=== PATIENT | female | born 1995 | race Caucasian/White ===

== ENCOUNTER 2020-11-07 10:08 | Inpatient (IN) | payer OTHER, MEDICAID, SELFPAY ==
[2020-11-07] VITALS (15 sets, daily range): BP systolic 94–145; BP diastolic 63–76; PULSE 59–77; RESP 16–18; TEMP 36.1–36.5; O2SAT 97–100; BMI 47.2
[2020-11-07] MEDS: Lactated Ringers 1,000 ML 999 ML IV (10:50)
[2020-11-07 11:03] LABS: Absolute Lymphocyte Count 1.96 X10^3/uL (0.83-4.51); Absolute Neutrophil Count 7.4 X10^3/uL (2.0-7.7); Basophil# 0.03 X10^3/uL; Basophil% 0.3 % (0-1); Eosinophil# 0.06 X10^3/uL; Eosinophils% 0.6 % (0-5); Hematocrit 35.1 % (37-47); Lymphocyte # 1.96 X10^3/ul (0.83-4.51); Lymphocyte % 19.1 % (19-41); Mean Corp Hgb Conc 31.3 g/dL (32-36); Mean Corpuscular Hgb 27.3 pg (27.0-32.0); Mean Corpuscular Volume 87.1 fL (81-99); Mean Platelet Vol. 12.6 fl (6.2-12.0); Monocyte# 0.71 X10^3/uL; Monocyte% 6.9 % (0-10); NRBC Flagged by Analyzer 0 % (0-5); Neutrophil # 7.43 X10^3/uL (2.7-7.7); Neutrophil % 72.2 % (47-70); POSITIVE MORPHOLOGY YES; Platelet Count 210 K/mm3 (150-450); RBC Distribution Width CV 14.6 % (11.6-14.6); RBC Distribution Width SD 46.5 fl (35.1-43.9); Red Blood Count 4.03 M/mm3 (4.2-5.4); White Blood Count 10.3 K/mm3 (4.4-11.0)
[2020-11-07 11:06] LABS: Differential Indicated SCAN CRITERIA MET
[2020-11-07] MEDS: Acetaminophen 500 MG Tablet 1000 MG PO ×2 (11:38→17:56)
[2020-11-07] MEDS: Lactated Ringers 1,000 ML 150 ML IV (11:41)
[2020-11-07] MEDS: Sodium Citrate/Citric Acid 30 ML UDC PO (12:02)
[2020-11-07] MEDS: Cefazolin 2 GM in 0.9% Normal Saline 100 ML IV (12:07)
--- NOTE | 2020-11-07 12:09 | PCM.HP.OB ---
HPI - General General Date of Admission: 11/07/20 HPI Narrative LEI THRASHER, is a 24 F who presents for repeat section for gHTN and A1GDM. No pre e symptoms. Fasting BG's are now starting to elevate over the last few days. BP at home has been mild range. BP in office 2 days ago was mild range, as well as today. DBP 100's in office. Maternal Data Information YEMI Calculator Estimated Delivery Date Method Current WG Current Estimate 11/18/20 LMP (Certain) 38w 3d PFSH PFSH Home Medications bupropion HCl [Wellbutrin XL] 150 mg PO 11/07/20 [History Last Taken 11/06/20 21:00] fluoxetine [Prozac] 40 mg PO DAILY 11/07/20 [History Last Taken 11/06/20 21:00] Allergy/AdvReac Type Severity Reaction Status Date / Time pecan nut Allergy Swelling Verified 11/07/20 10:57 Social History Smoking Status: Former smoker History Elective abortions Hx Para 1 Spontaneous abortions Hx # Term Pregnancies Ectopic pregnancies Hx # Pregnancies Multiple births # of living children Vital Signs Vital Signs Vital Signs: Weight Weight: 274 lb 14.663 oz Body Mass Index (BMI) 47.2 Physical Exam Const alert and no apparent distress General Appearance: comfortable Resp normal respiratory effort Cardio regular rate GI soft to palpation and non-tender Extremity no calf tenderness Extremity Narrative: 1+ pitting edema bilaterally Labs Labs Labs: Blood Type Pending Antibody Screen Pending Hct 35.1 % (37-47) L Hgb 11.0 g/dL (12.0-15.0) L Assessment & Plan (1) 38 weeks gestation of : PLAN: Proceed with repeat section - r/b/a were discussed and patient desires to proceed. Consent signed in office. BP's now mild range in the office on two separate occasions, and at home. No evidence of pre e. A1GDM - fasting BG's now elevated. (2) History of section: (3) Gestational hypertension: (4) Gestational diabetes: (5) History of gestational hypertension: (6) History of depression:
[2020-11-07] MEDS: Oxytocin 30 units/NS 500 ml 30 UNITS/500 ML IV.SOLN 167 UNITS IV (13:30)
--- NOTE | 2020-11-07 13:35 | PCM.OPRPT ---
Problems Associated Problem List Diagnoses (1) Gestational diabetes: (2) Gestational hypertension: (3) History of section: (4) 38 weeks gestation of : (5) delivery delivered: Report of Operation Date of Procedure: 11/07/20 Pre-Operative Diagnosis: 38 week gestation, prior section, gHTN, A1GDM Post-Operative Diagnosis: As above Surgery/Procedure Performed:: Repeat section Description of Surgical Findings:: Minimal scar tissue. Normal appearing uterus, bilateral tubes and bilateral ovaries Surgeon: reanna sourcing associate: Jd Type of Anesthesia: Spinal Special Medications: None Specimen's removed: Placenta Drains: Fong Estimated Blood Loss (mL): 1000 Fluids Replaced: See anesthesia record Description of Procedure: Patient was taken to the operating room where spinal anesthesia was found to be adequate. She was prepped and draped in dorsal position with a leftward tilt. A Pfannenstiel skin incision was made with a scalpel and this was carried down to the underlying layer fascia. The fascia was incised in midline. The fascia was extended laterally using scott scissors. The fascia was dissected off the rectus muscles using a combination of sharp and blunt dissection. The rectus muscles were midline. The peritoneum was entered sharply with good visualization of the bladder. A bladder flap was created. A low transverse incision was made in the uterus with a scalpel. Clear fluid was noted. The was delivered through the hysterotomy easily and without any force or delay. A viable female was delivered atraumatically and the head was in flexed position. The cord was clamped and cut after a short delay. The infant was handed off to nursery staff. The placenta was manually removed. Uterus was cleared of all clot and debris. Hysterotomy was closed with Vicryl in a running locked fashion. Hemostasis was noted. The peritoneum was closed in a running fashion with Vicryl. The fascia was closed with PDS in a running fashion. Subcutanous space was irrigated and made hemostatic with Bovie cautery. The subcutanous space was reapproximated with Vicryl. The skin was closed in a subcuticular fashion using Monocryl. Steri-Strips and dressing were placed. Instrument, sponge, needle counts were correct. Patient was taken to the recovery room in stable condition. Grafts/Implants Used: None Procedure Start Time: 12:32 Procedure Stop Time: 13:16 Complications None Admit VTE Documentation VTE Present on Admission: No VTE Mechan Device Prophylaxis: SCD's
[2020-11-07] MEDS: Ketorolac 30 MG/ML Syringe IV ×2 (14:21→20:13)
[2020-11-07 14:41] LABS: Bedside Glucose 80 mg/dL (70-110)
[2020-11-07] MEDS: HYDROmorphone 1 MG/ML Syringe IV ×2 (15:28→21:21)
[2020-11-07] MEDS: Lactated Ringers 1,000 ML 100 ML IV (15:56)
[2020-11-07] MEDS: 0.9% Saline Lock 10 ML Syringe IV (21:21)
[2020-11-08] VITALS (7 sets, daily range): BP systolic 106–127; BP diastolic 52–81; PULSE 73–90; RESP 16; TEMP 36.1–36.5; O2SAT 96–99
[2020-11-08] MEDS: Enoxaparin 40 MG/0.4 ML Syringe SC ×2 (00:17→12:11)
[2020-11-08] MEDS: Acetaminophen 500 MG Tablet 1000 MG PO ×3 (00:17→12:12)
[2020-11-08] MEDS: Ketorolac 30 MG/ML Syringe IV ×2 (02:10→08:05)
[2020-11-08] MEDS: 0.9% Saline Lock 10 ML Syringe IV ×2 (02:10→08:05)
[2020-11-08 06:13] LABS: Hemoglobin 9.6 g/dL (12.0-15.0); Mean Corpuscular Hgb 27.4 pg (27.0-32.0); Mean Corpuscular Volume 88.3 fL (81-99); Mean Platelet Vol. 12.7 fl (6.2-12.0); Platelet Count 179 K/mm3 (150-450); RBC Distribution Width CV 14.7 % (11.6-14.6); RBC Distribution Width SD 47.7 fl (35.1-43.9); Red Blood Count 3.51 M/mm3 (4.2-5.4); White Blood Count 10.3 K/mm3 (4.4-11.0)
[2020-11-08 07:36] LABS: Bedside Glucose 78 mg/dL (70-110)
--- NOTE | 2020-11-08 09:01 | PN.OBGYN_ITS ---
Subjective Subjective Patient is doing well. Denies headache, vision changes, upper abdominal pain, vomiting. Ambulating around the room without difficulty. Denies lightheadedness or dizziness. Denies shortness of breath. Lochia normal. Spontaneously voiding and eating without difficulty. No leg pain. She desires to go home today. Pain controlled. Objective Data Objective Data Vital Signs: Vital Signs Temp Pulse Resp BP Pulse Ox 97.5 F L 78 16 106/60 97 11/08/20 08:16 11/08/20 08:16 11/08/20 08:16 11/08/20 08:16 11/08/20 08:16 Oxygen Delivery Method Room Air Weight: 274 lb 14.663 oz Body Mass Index (BMI) 47.2 Intake & Output: Intake and Output for Last 24 Hours 11/06/20 11/07/20 11/08/20 23:59 23:59 23:59 Intake Total 2193.33 / 2193.33 Output Total 1550 / 1550 400 / 400 Balance 643.33 / 643.33 -400 / -400 Lab / Micro Data Result Diagrams: 11/08/20 06:00 Labs: Laboratory Results - last 24 hr 11/07/20 10:50: WBC 10.3, RBC 4.03 L, Hgb 11.0 L, Hct 35.1 L, MCV 87.1, MCH 27.3, MCHC 31.3 L, RDW Std Deviation 46.5 H, RDW Coeff of Landon 14.6, Plt Count 210, MPV 12.6 H, Immature Gran % (Auto) 0.900, Neut % (Auto) 72.2 H, Lymph % (Auto) 19.1, Morehouse % (Auto) 6.9, Eos % (Auto) 0.6, Baso % (Auto) 0.3, Absolute Neuts (auto) 7.4, Absolute Lymphs (auto) 1.96, Nucleated RBC % 0 11/07/20 10:50: Blood Type B POSITIVE, Antibody Screen NEGATIVE 11/07/20 14:27: POC Glucose 80 11/08/20 06:00: WBC 10.3, RBC 3.51 L, Hgb 9.6 L, Hct 31.0 L, MCV 88.3, MCH 27.4, MCHC 31.0 L, RDW Std Deviation 47.7 H, RDW Coeff of Landon 14.7 H, Plt Count 179, MPV 12.7 H 11/08/20 07:31: POC Glucose 78 Micro: Microbiology 11/07/20 11:00 Nasal Secretion SARS-CoV-2 Antigen (Rapid) - Final Physical Exam Const alert and no apparent distress General Appearance: cooperative HEENT normocephalic GI soft to palpation, non-tender and non-distended Extremity no calf tenderness Assessment & Plan (1) Gestational hypertension: PLAN: Patient is postoperative day 1 from a repeat section for gestational hypertension. She has no preeclampsia symptoms. Blood pressures are normal. She desires discharge today. Discharge instructions reviewed. Discharge home with follow-up in the office in 1 week for an incision check and blood pressure check. (2) Gestational diabetes: (3) delivery delivered: (4) History of depression:
--- NOTE | 2020-11-08 09:30 | PCM.DC ---
Discharge Instructions Diet Discharge Diet: No restrictions Activity Discharge Activity: May Not Drive (until strong enough to slam on a break or turn a steering wheel sharply) and May Shower May resume sexual activity in: 6 weeks Weight Bearing Status: Weight bearing as tolerated Lifting Restrictions: Nothing heavier than baby Dressing / Incision Call your doctor if your incision/area has: Sudden Increased Bleeding, Increased Pain/ Swelling, Increased Redness, Foul Smelling Discharge and Swelling at the incision site Call your doctor if you observe: Fever of 101 or Higher, Numbness or Tingling, Change in Color, Inability to urinate, Inability to have a bowel movement, Using more than 1 pad per hour, Shortness of breath, Dizziness, Fainting spells, Swelling in the ankles, Chest pain, Increased palpitations (irregular heartbeat), Calf discomfort, Uncontrolled pain and - (Headaches, vision changes) Suture Line Care: Avoid Pulling/Pushing and Avoid Pinching/Bending Change Dressing in: do not change dressing (Will remove in the office after 7 days) Cleanse incision/area with: Soap & Water (once dressing is removed ok to use soap and water over incision) Follow Up Care Please Follow Up With: Monica Eli DO When: 1 week for blood pressure and incision check Test Results: Test results from this visit will be discussed in further detail at your follow-up appointment, if applicable. Discharge Plan Admission Admit Date/Time: 11/07/20 10:08 Primary Reason for Your Visit: repeat section Attending Provider: Monica Eli Primary Care Provider: Chanelle Harris Instructions Patient Instructions: After a , C Section Dc, Gestational Hypertension Additional Instructions / Restrictions: If you have severe headache, changes in vision, upper abdominal pain, vomiting, or you do not feel well check your blood pressure. If it is 140/90 or higher call. Check your blood pressure once or twice daily, and call if elevated. Discharge Orders/Prescriptions Prescriptions: New oxycodone-acetaminophen [Percocet] 5-325 mg tablet 1 tab PO Q8H PRN (Reason: pain) 7 Days Qty: 10 RF: 0 ibuprofen [Motrin IB] 200 mg tablet 800 mg PO Q8H PRN (Reason: pain (scale score 7-10)) Qty: 20 RF: 0 No Action fluoxetine [Prozac] 40 mg Capsule 40 mg PO DAILY RF: 0 bupropion HCl [Wellbutrin XL] 150 mg Tablet Extended Release 24 Hr 150 mg PO RF: 0 Referrals / Follow Up: Chanelle Harris MD [Primary Care Provider] - Disposition Discharge Orders: Discharge Patient (Routine); Ordered 11/08/20 Ordered By: Dr. Monica Eli
[2020-11-08] MEDS: Senna/Docusate Sodium 1 Tablet PO (09:41)
[2020-11-08] MEDS: buPROPion (XL) 150 MG TABLET.XL PO (09:42)
[2020-11-08] MEDS: FLUoxetine 20 MG Capsule 40 MG PO (09:42)
--- NOTE | 2020-11-08 12:12 | NURSING ---
This psychiatric nursing assistant reviewed the documentation completed by Dyana Dewitt student nurse. Also, this instructor was present for the medication administration.
[2020-11-08] MEDS: Ibuprofen 600 MG Tablet PO (14:28)
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
== END 2020-11-08 16:50 | disposition home or self-care (01) | DRG 788 ==
PROVIDERS: Admitting Provider Obstetrics & Gynecology; Visit Provider Obstetrics & Gynecology
PROC: 10D00Z1 Extraction of Products of Conception, Low, Open Approach (ICD-10-PCS; CPT 59514; principal; 2020-11-07 11:45)
DX: O34.211 Maternal care for low transverse scar from previous cesarean delivery (principal); O13.3 Gestational [pregnancy-induced] hypertension without significant proteinuria, third trimester; O24.420 Gestational diabetes mellitus in childbirth, diet controlled; Z3A.38 38 weeks gestation of pregnancy; Z37.0 Single live birth; Z87.891 Personal history of nicotine dependence
CPT/HCPCS: 82962; 85025; 85027; 86850; 86900; 86901; 87426; 99218; J7120; A4216; G0378; J2405

== ENCOUNTER 2020-11-11 21:05 | Outpatient (CLI) | payer OTHER, MEDICAID, SELFPAY ==
[2020-11-11] VITALS (42 sets, daily range): BP systolic 130–184; BP diastolic 64–93; PULSE 63–93; RESP 16–18; TEMP 36.3–36.8; O2SAT 96–100; BMI 46.1
[2020-11-11] MEDS: 0.9% Saline Lock 10 ML Syringe IV ×2 (21:55→21:57)
[2020-11-11] MEDS: Labetalol (Prefilled) 20 MG/4 ML IV (21:57)
[2020-11-11] MEDS: Magnesium Sulfate 4gm/100mL 4 GM/100 ML IV.SOLN. IV (22:00)
[2020-11-11 22:15] LABS: Hematocrit 31.6 % (37-47); Hemoglobin 9.8 g/dL (12.0-15.0); Mean Corpuscular Hgb 27.5 pg (27.0-32.0); Mean Corpuscular Volume 88.5 fL (81-99); Mean Platelet Vol. 12.4 fl (6.2-12.0); Platelet Count 249 K/mm3 (150-450); RBC Distribution Width CV 14.7 % (11.6-14.6); RBC Distribution Width SD 47.3 fl (35.1-43.9); Red Blood Count 3.57 M/mm3 (4.2-5.4); White Blood Count 10.1 K/mm3 (4.4-11.0)
[2020-11-11] MEDS: Magnesium Sulfate 4gm/100mL 2 GM/50 ML IV.SOLN. IV (22:19)
[2020-11-11] MEDS: Labetalol 100 MG Tablet PO (22:28)
[2020-11-11] MEDS: Magnesium Sulfate 20 GM/500 ML BAG IV (22:32)
[2020-11-11 23:01] LABS: ALB/GLOB Ratio 0.5 RATIO (0.9-2.4); AST(SGOT) 24 U/L (15-37); Alanine Aminotransfer ALT/SGPT 38 U/L (13-56); Albumin, Serum 2.4 g/dL (3.2-5.0); Alkaline Phosphatase 71 U/L (45-117); Anion Gap 7 (5-15); BUN 12 mg/dL (7-18); BUN/Creat Ratio 19.6 RATIO (10-20); Chloride 107 mmol/L (98-107); Creatinine, Serum 0.61 mg/dL (0.55-1.02); EST Glomerular Filtration Rate 126 mL/min (>60); Est Glom Filt Rate - Afr Amer 152 mL/min (>60); Estimated Creatinine Clearance 121.74 ml/min; Globulin 4.6 g/dL (2.2-4.2); Glucose 95 mg/dL (74-106); Sodium Level 141 mmol/L (136-145)
--- NOTE | 2020-11-11 23:06 | NURSING ---
Report given to Amanda JOEL. she assumes pt care at this time
[2020-11-12] VITALS (59 sets, daily range): BP systolic 116–154; BP diastolic 58–88; PULSE 57–87; RESP 16–19; TEMP 35.1–36.7; O2SAT 90–100
[2020-11-12] MEDS: Ibuprofen 600 MG Tablet PO ×4 (00:32→18:35)
[2020-11-12] MEDS: Acetaminophen 500 MG Tablet 1000 MG PO ×4 (00:32→18:35)
[2020-11-12] MEDS: Magnesium Sulfate 20 GM/500 ML BAG IV ×2 (08:56→18:52)
[2020-11-12] MEDS: Labetalol 100 MG Tablet PO (09:52)
--- NOTE | 2020-11-12 12:26 | PCM.HP.OB ---
HPI - General HPI Narrative LEI THRASHER, is a 24 F who presents wiht preeclampsia. She had a repeat C/S on 11/07/20 for gHTN and A1GDM at 38 wks gestation. BP's were normal throughout admission. She was instructed to check BP's at home, and yesterday she checked her BP and it was over 160/110 so she presented to the hospital. No PAYAN, vision changes, upper abd pain, vomiting. Doing well. Maternal Data Information YEIM Calculator Estimated Delivery Date Method Current WG Current Estimate 11/18/20 LMP (Certain) 39w 1d PFSH PFSH Medical History (Updated 11/12/20 @ 12:[address] Monica Eli, DO) Depression Gestational HTN depression Home Medications bupropion HCl [Wellbutrin XL] 150 mg PO DAILY 11/07/20 [History Last Taken 11/07/20] fluoxetine [Prozac] 40 mg PO DAILY 11/07/20 [History Last Taken 11/07/20] ibuprofen 800 mg PO Q8H PRN #20 tab 11/08/20 [Rx Last Taken 11/11/20] oxycodone-acetaminophen [Percocet] 1 tab PO Q8H PRN 7 Days #10 tab 11/08/20 [Rx Last Taken 11/10/20 14:00] Allergy/AdvReac Type Severity Reaction Status Date / Time pecan nut Allergy Swelling Verified 11/07/20 10:57 Social History Smoking Status: Former smoker History Elective abortions Hx Para 1 Spontaneous abortions Hx # Term Pregnancies Ectopic pregnancies Hx # Pregnancies Multiple births # of living children ROS ROS Narrative No PAYAN, vision changes, upper abd pain, N/V Vital Signs Vital Signs Vital Signs: 11/11/20 21:25 11/11/20 21:26 11/11/20 21:30 Temperature 98.1 F 98.0 F Temperature Source Temporal Pulse Rate 78 73 Respiratory Rate Respiratory Effort Respiratory Depth Respiratory Pattern Blood Pressure 170/87 H Blood Pressure [BP] Blood Pressure Mean Blood Pressure Mean [BP] BP Systolic 170 BP Diastolic 87 Blood Pressure Source Blood Pressure Source [BP] Blood Pressure Position Blood Pressure Position [BP] Blood Pressure Location Blood Pressure Location [BP] Pulse Ox 97 99 Oxygen Delivery Method 11/11/20 21:42 11/11/20 21:55 11/11/20 21:57 Temperature Temperature Source Pulse Rate 75 70 68 Respiratory Rate Respiratory Effort Respiratory Depth Respiratory Pattern Blood Pressure 178/87 H 184/93 H Blood Pressure [BP] Blood Pressure Mean Blood Pressure Mean [BP] BP Systolic 178 184 BP Diastolic 87 93 Blood Pressure Source Blood Pressure Source [BP] Blood Pressure Position Blood Pressure Position [BP] Blood Pressure Location Blood Pressure Location [BP] Pulse Ox 99 Oxygen Delivery Method 11/11/20 22:00 11/11/20 22:05 11/11/20 22:10 Temperature Temperature Source Pulse Rate 63 70 79 Respiratory Rate Respiratory Effort Normal Non-Labored Respiratory Depth Normal Respiratory Pattern Normal Blood Pressure 158/79 H Blood Pressure [BP] Blood Pressure Mean Blood Pressure Mean [BP] BP Systolic 158 BP Diastolic 79 Blood Pressure Source Blood Pressure Source [BP] Blood Pressure Position Blood Pressure Position [BP] Blood Pressure Location Blood Pressure Location [BP] Pulse Ox 100 99 98 Oxygen Delivery Method 11/11/20 22:14 11/11/20 22:15 11/11/20 22:20 Temperature 97.3 F L Temperature Source Pulse Rate 86 87 Respiratory Rate Respiratory Effort Normal Non-Labored Respiratory Depth Normal Respiratory Pattern Normal Blood Pressure Blood Pressure [BP] Blood Pressure Mean Blood Pressure Mean [BP] BP Systolic BP Diastolic Blood Pressure Source Blood Pressure Source [BP] Blood Pressure Position Blood Pressure Position [BP] Blood Pressure Location Blood Pressure Location [BP] Pulse Ox 96 97 Oxygen Delivery Method 11/11/20 22:22 11/11/20 22:25 11/11/20 22:30 Temperature Temperature Source Pulse Rate 85 93 89 Respiratory Rate 16 Respiratory Effort Normal Non-Labored Respiratory Depth Normal Respiratory Pattern Normal Blood Pressure 134/76 H Blood Pressure [BP] Blood Pressure Mean Blood Pressure Mean [BP] BP Systolic 134 BP Diastolic 76 Blood Pressure Source Blood Pressure Source [BP] Blood Pressure Position Blood Pressure Position [BP] Blood Pressure Location Blood Pressure Location [BP] Pulse Ox 97 97 96 Oxygen Delivery Method Room Air 11/11/20 22:33 11/11/20 22:34 11/11/20 22:35 Temperature 97.9 F Temperature Source Pulse Rate 85 90 Respiratory Rate Respiratory Effort Respiratory Depth Respiratory Pattern Blood Pressure 135/70 H Blood Pressure [BP] Blood Pressure Mean Blood Pressure Mean [BP] BP Systolic 135 BP Diastolic 70 Blood Pressure Source Blood Pressure Source [BP] Blood Pressure Position Blood Pressure Position [BP] Blood Pressure Location Blood Pressure Location [BP] Pulse Ox 99 Oxygen Delivery Method 11/11/20 22:37 11/11/20 22:40 11/11/20 22:45 Temperature 98.2 F Temperature Source Temporal Pulse Rate 85 86 85 Respiratory Rate 16 Respiratory Effort Normal Non-Labored Respiratory Depth Normal Respiratory Pattern Normal Blood Pressure 136/66 H Blood Pressure [BP] Blood Pressure Mean Blood Pressure Mean [BP] BP Systolic 136 BP Diastolic 66 Blood Pressure Source Blood Pressure Source [BP] Blood Pressure Position Blood Pressure Position [BP] Blood Pressure Location Blood Pressure Location [BP] Pulse Ox 98 98 Oxygen Delivery Method Room Air 11/11/20 22:47 11/11/20 22:50 11/11/20 22:55 Temperature Temperature Source Pulse Rate 85 84 80 Respiratory Rate Respiratory Effort Respiratory Depth Respiratory Pattern Blood Pressure 138/70 H Blood Pressure [BP] Blood Pressure Mean Blood Pressure Mean [BP] BP Systolic 138 BP Diastolic 70 Blood Pressure Source Blood Pressure Source [BP] Blood Pressure Position Blood Pressure Position [BP] Blood Pressure Location Blood Pressure Location [BP] Pulse Ox 99 98 Oxygen Delivery Method 11/11/20 22:57 11/11/20 23:05 11/11/20 23:10 Temperature Temperature Source Pulse Rate 82 81 79 Respiratory Rate Respiratory Effort Respiratory Depth Respiratory Pattern Blood Pressure 140/74 H Blood Pressure [BP] Blood Pressure Mean Blood Pressure Mean [BP] BP Systolic 140 BP Diastolic 74 Blood Pressure Source Blood Pressure Source [BP] Blood Pressure Position Blood Pressure Position [BP] Blood Pressure Location Blood Pressure Location [BP] Pulse Ox 97 97 Oxygen Delivery Method 11/11/20 23:13 11/11/20 23:14 11/11/20 23:15 Temperature Temperature Source Pulse Rate 76 81 84 Respiratory Rate 18 Respiratory Effort Normal Respiratory Depth Normal Respiratory Pattern Normal Blood Pressure 135/74 H 135/74 H Blood Pressure [BP] Blood Pressure Mean 94 Blood Pressure Mean [BP] BP Systolic 135 BP Diastolic 74 Blood Pressure Source Monitor Blood Pressure Source [BP] Blood Pressure Position Semi-Fowlers Blood Pressure Position [BP] Blood Pressure Location Left Arm Blood Pressure Location [BP] Pulse Ox 97 Oxygen Delivery Method Room Air 11/11/20 23:20 11/11/20 23:25 11/11/20 23:28 Temperature Temperature Source Pulse Rate 82 77 79 Respiratory Rate Respiratory Effort Respiratory Depth Respiratory Pattern Blood Pressure 131/66 H Blood Pressure [BP] Blood Pressure Mean Blood Pressure Mean [BP] BP Systolic 131 BP Diastolic 66 Blood Pressure Source Blood Pressure Source [BP] Blood Pressure Position Blood Pressure Position [BP] Blood Pressure Location Blood Pressure Location [BP] Pulse Ox 98 98 Oxygen Delivery Method 11/11/20 23:29 11/11/20 23:30 11/11/20 23:35 Temperature Temperature Source Pulse Rate 73 80 Respiratory Rate Respiratory Effort Respiratory Depth Respiratory Pattern Blood Pressure Blood Pressure [BP] 131/66 H Blood Pressure Mean Blood Pressure Mean [BP] 87 BP Systolic BP Diastolic Blood Pressure Source Blood Pressure Source [BP] Blood Pressure Position Blood Pressure Position [BP] Sitting Blood Pressure Location Blood Pressure Location [BP] Left Arm Pulse Ox 98 98 Oxygen Delivery Method 11/11/20 23:40 11/11/20 23:43 11/11/20 23:45 Temperature Temperature Source Pulse Rate 78 75 81 Respiratory Rate 18 Respiratory Effort Respiratory Depth Respiratory Pattern Blood Pressure 131/65 H 131/65 H Blood Pressure [BP] Blood Pressure Mean 87 Blood Pressure Mean [BP] BP Systolic 131 BP Diastolic 65 Blood Pressure Source Monitor Blood Pressure Source [BP] Blood Pressure Position Sitting Blood Pressure Position [BP] Blood Pressure Location Left Arm Blood Pressure Location [BP] Pulse Ox 98 98 Oxygen Delivery Method Room Air 11/11/20 23:50 11/11/20 23:55 11/11/20 23:58 Temperature Temperature Source Pulse Rate 81 85 73 Respiratory Rate Respiratory Effort Respiratory Depth Respiratory Pattern Blood Pressure 130/64 H Blood Pressure [BP] Blood Pressure Mean Blood Pressure Mean [BP] BP Systolic 130 BP Diastolic 64 Blood Pressure Source Blood Pressure Source [BP] Blood Pressure Position Blood Pressure Position [BP] Blood Pressure Location Blood Pressure Location [BP] Pulse Ox 98 98 Oxygen Delivery Method 11/12/20 00:00 11/12/20 00:05 11/12/20 00:10 Temperature Temperature Source Pulse Rate 78 73 75 Respiratory Rate Respiratory Effort Respiratory Depth Respiratory Pattern Blood Pressure Blood Pressure [BP] 130/64 H Blood Pressure Mean Blood Pressure Mean [BP] 86 BP Systolic BP Diastolic Blood Pressure Source Blood Pressure Source [BP] Monitor Blood Pressure Position Blood Pressure Position [BP] Semi-Fowlers Blood Pressure Location Blood Pressure Location [BP] Left Arm Pulse Ox 97 98 98 Oxygen Delivery Method 11/12/20 00:15 11/12/20 00:20 11/12/20 00:25 Temperature Temperature Source Pulse Rate 69 74 72 Respiratory Rate Respiratory Effort Respiratory Depth Respiratory Pattern Blood Pressure Blood Pressure [BP] Blood Pressure Mean Blood Pressure Mean [BP] BP Systolic BP Diastolic Blood Pressure Source Blood Pressure Source [BP] Blood Pressure Position Blood Pressure Position [BP] Blood Pressure Location Blood Pressure Location [BP] Pulse Ox 98 98 98 Oxygen Delivery Method 11/12/20 00:30 11/12/20 00:31 11/12/20 00:33 Temperature Temperature Source Pulse Rate 71 Respiratory Rate Respiratory Effort Normal Respiratory Depth Normal Respiratory Pattern Normal Blood Pressure 132/63 H Blood Pressure [BP] 132/63 H Blood Pressure Mean Blood Pressure Mean [BP] 86 BP Systolic 132 BP Diastolic 63 Blood Pressure Source Blood Pressure Source [BP] Monitor Blood Pressure Position Blood Pressure Position [BP] Sitting Blood Pressure Location Blood Pressure Location [BP] Left Arm Pulse Ox 99 Oxygen Delivery Method 11/12/20 00:35 11/12/20 00:40 11/12/20 00:45 Temperature Temperature Source Pulse Rate 86 69 66 Respiratory Rate Respiratory Effort Respiratory Depth Respiratory Pattern Blood Pressure Blood Pressure [BP] Blood Pressure Mean Blood Pressure Mean [BP] BP Systolic BP Diastolic Blood Pressure Source Blood Pressure Source [BP] Blood Pressure Position Blood Pressure Position [BP] Blood Pressure Location Blood Pressure Location [BP] Pulse Ox 99 98 98 Oxygen Delivery Method 11/12/20 00:50 11/12/20 00:55 11/12/20 01:00 Temperature Temperature Source Pulse Rate 66 60 72 Respiratory Rate 18 Respiratory Effort Respiratory Depth Respiratory Pattern Blood Pressure 128/58 H Blood Pressure [BP] Blood Pressure Mean 81 Blood Pressure Mean [BP] BP Systolic 128 BP Diastolic 58 Blood Pressure Source Monitor Blood Pressure Source [BP] Blood Pressure Position Semi-Fowlers Blood Pressure Position [BP] Blood Pressure Location Left Arm Blood Pressure Location [BP] Pulse Ox 98 97 97 Oxygen Delivery Method Room Air 11/12/20 02:00 11/12/20 02:02 11/12/20 03:00 Temperature 97 F L Temperature Source Temporal Pulse Rate 82 82 68 Respiratory Rate 18 18 Respiratory Effort Normal Respiratory Depth Normal Respiratory Pattern Normal Blood Pressure 133/62 H 133/66 H 120/59 L Blood Pressure [BP] Blood Pressure Mean 85 79 Blood Pressure Mean [BP] BP Systolic 133 BP Diastolic 66 Blood Pressure Source Monitor Monitor Blood Pressure Source [BP] Blood Pressure Position Semi-Fowlers Supine Blood Pressure Position [BP] Blood Pressure Location Left Arm Left Arm Blood Pressure Location [BP] Pulse Ox Oxygen Delivery Method Room Air Room Air 11/12/20 03:05 11/12/20 04:00 11/12/20 04:12 Temperature Temperature Source Pulse Rate 68 74 74 Respiratory Rate 16 Respiratory Effort Normal Respiratory Depth Normal Respiratory Pattern Normal Blood Pressure 120/59 L 134/73 H 134/73 H Blood Pressure [BP] Blood Pressure Mean 93 Blood Pressure Mean [BP] BP Systolic 120 134 BP Diastolic 59 73 Blood Pressure Source Monitor Blood Pressure Source [BP] Blood Pressure Position Sitting Blood Pressure Position [BP] Blood Pressure Location Left Arm Blood Pressure Location [BP] Pulse Ox Oxygen Delivery Method Room Air 11/12/20 05:00 11/12/20 05:09 11/12/20 06:00 Temperature Temperature Source Pulse Rate 57 L 57 L 84 Respiratory Rate 16 18 Respiratory Effort Normal Respiratory Depth Normal Respiratory Pattern Normal Blood Pressure 143/64 H 143/64 H 135/71 H Blood Pressure [BP] Blood Pressure Mean 90 92 Blood Pressure Mean [BP] BP Systolic 143 BP Diastolic 64 Blood Pressure Source Monitor Monitor Blood Pressure Source [BP] Blood Pressure Position Semi-Fowlers Supine Blood Pressure Position [BP] Blood Pressure Location Left Arm Left Arm Blood Pressure Location [BP] Pulse Ox Oxygen Delivery Method Room Air Room Air 11/12/20 06:09 11/12/20 07:00 11/12/20 07:02 Temperature 97.2 F L 97.2 F L Temperature Source Axillary Pulse Rate 84 72 72 Respiratory Rate 18 Respiratory Effort Respiratory Depth Respiratory Pattern Blood Pressure 135/71 H 125/70 H 125/70 H Blood Pressure [BP] Blood Pressure Mean 88 Blood Pressure Mean [BP] BP Systolic 135 125 BP Diastolic 71 70 Blood Pressure Source Monitor Blood Pressure Source [BP] Blood Pressure Position Supine Blood Pressure Position [BP] Blood Pressure Location Left Arm Blood Pressure Location [BP] Pulse Ox Oxygen Delivery Method Room Air 11/12/20 08:01 11/12/20 08:03 11/12/20 08:04 Temperature 98.1 F 97.2 F L Temperature Source Temporal Pulse Rate 64 64 Respiratory Rate 16 Respiratory Effort Normal Respiratory Depth Normal Respiratory Pattern Normal Blood Pressure 116/64 116/64 Blood Pressure [BP] Blood Pressure Mean 81 Blood Pressure Mean [BP] BP Systolic 116 BP Diastolic 64 Blood Pressure Source Monitor Blood Pressure Source [BP] Blood Pressure Position Semi-Fowlers Blood Pressure Position [BP] Blood Pressure Location Left Arm Blood Pressure Location [BP] Pulse Ox 100 Oxygen Delivery Method Room Air 11/12/20 08:57 11/12/20 09:00 11/12/20 09:53 Temperature Temperature Source Pulse Rate 64 65 76 Respiratory Rate 16 16 Respiratory Effort Normal Respiratory Depth Normal Respiratory Pattern Normal Blood Pressure 135/66 H 135/66 H 133/83 H Blood Pressure [BP] Blood Pressure Mean 89 99 Blood Pressure Mean [BP] BP Systolic 135 BP Diastolic 66 Blood Pressure Source Monitor Monitor Blood Pressure Source [BP] Blood Pressure Position Semi-Fowlers Semi-Fowlers Blood Pressure Position [BP] Blood Pressure Location Left Arm Left Arm Blood Pressure Location [BP] Pulse Ox 99 99 Oxygen Delivery Method Room Air Room Air 11/12/20 09:55 11/12/20 11:00 11/12/20 11:02 Temperature Temperature Source Pulse Rate 71 78 77 Respiratory Rate 16 Respiratory Effort Respiratory Depth Respiratory Pattern Blood Pressure 133/83 H 140/78 H 140/78 H Blood Pressure [BP] Blood Pressure Mean 98 Blood Pressure Mean [BP] BP Systolic 133 140 BP Diastolic 83 78 Blood Pressure Source Monitor Blood Pressure Source [BP] Blood Pressure Position Semi-Fowlers Blood Pressure Position [BP] Blood Pressure Location Left Arm Blood Pressure Location [BP] Pulse Ox 98 Oxygen Delivery Method Room Air 11/12/20 12:00 11/12/20 12:01 11/12/20 12:03 Temperature 98 F Temperature Source Oral Pulse Rate 76 76 80 Respiratory Rate 18 Respiratory Effort Normal Non-Labored Respiratory Depth Normal Respiratory Pattern Normal Blood Pressure 140/88 H 140/88 H Blood Pressure [BP] Blood Pressure Mean 105 Blood Pressure Mean [BP] BP Systolic 140 BP Diastolic 88 Blood Pressure Source Monitor Blood Pressure Source [BP] Blood Pressure Position Semi-Fowlers Blood Pressure Position [BP] Blood Pressure Location Left Arm Blood Pressure Location [BP] Pulse Ox 100 100 Oxygen Delivery Method Room Air Weight Weight: 268 lb 11.896 oz Body Mass Index (BMI) 46.1 Labs Labs Labs: Blood Type B POSITIVE Antibody Screen NEGATIVE Hct 31.6 % (37-47) L Hgb 9.8 g/dL (12.0-15.0) L Assessment & Plan (1) Preeclampsia in period: PLAN: Had repeat C/S on 11/07/20 for gHTN and A1GDM and presented day #5 with severe range BP's. Cont mag gtt for 24 hrs for pre eclampsia. BP's starting to trend up on Labetalol 100 mg BID - will increase to 200 mg TID. Labs WNL on admission - will recheck if pt symptomatic. Pt asymptomatic today. Otherwise routine post op care. (2) Gestational hypertension: (3) Gestational diabetes: (4) delivery delivered: (5) History of depression:
[2020-11-12] MEDS: Labetalol 200 MG Tablet PO ×2 (13:26→21:53)
--- NOTE | 2020-11-12 19:16 | NURSING ---
Aye tag #[id number] put on patient's baby, verified by this RN and Jeanette Sexton RN
[2020-11-12] MEDS: buPROPion (XL) 150 MG TABLET.XL PO (19:52)
[2020-11-12] MEDS: FLUoxetine 20 MG Capsule 40 MG PO (19:54)
[2020-11-12] MEDS: 0.9% Saline Lock 10 ML Syringe IV (22:50)
[2020-11-13] VITALS (10 sets, daily range): BP systolic 118–148; BP diastolic 62–87; PULSE 59–86; RESP 12–17; TEMP 35.9–36.7; O2SAT 97–100
[2020-11-13] MEDS: Acetaminophen 500 MG Tablet 1000 MG PO ×3 (00:35→11:44)
[2020-11-13] MEDS: Ibuprofen 600 MG Tablet PO ×3 (00:35→11:44)
[2020-11-13] MEDS: Labetalol 200 MG Tablet PO ×2 (06:43→13:35)
--- NOTE | 2020-11-13 07:59 | PCM.PN.OB ---
Subjective Subjective pt seen at bedside, doing well. pt reports good pain control. pt denies PAYAN, visual changes or Epigastric or RUQ pain. Objective Data Objective Data Vital Signs: Vital Signs Temp Pulse Resp BP Pulse Ox 97.8 F 77 12 133/87 H 97 11/13/20 07:28 11/13/20 07:28 11/13/20 07:28 11/13/20 07:28 11/13/20 07:28 Oxygen Delivery Method Room Air Weight: 121.9 kg Body Mass Index (BMI) 46.1 Intake & Output: Intake and Output for Last 24 Hours 11/11/20 11/12/20 11/13/20 23:59 23:59 23:59 Intake Total 150 / 150 2220.84 / 2220.84 Output Total 1200 / 1200 3800 / 3800 Balance -1050 / -1050 -1579.16 / -1579.16 Lab / Micro Data Result Diagrams: 11/11/20 21:55 11/11/20 21:55 Micro: Microbiology 11/11/20 23:23 Nasal Secretion SARS-CoV-2 Antigen (Rapid) - Final Physical Exam Narrative NO RUQ or Epigastric pain on palpation. Const alert, no apparent distress and well nourished General Appearance: cooperative and comfortable Assessment & Plan (1) Preeclampsia in period: PLAN: HD#2 s/p cs on 11/07/20 h/o GHTN -= readmitted with elevated BP in severe range 1) s/p MAG x 24 hrs 2) Labetalol 200mg TID 3) follow up in office tomorrow as scheduled 4) reviewed monitor BPs at home. 5) DC home
--- NOTE | 2020-11-13 08:04 | DS.PCM_ITS ---
Discharge Summary Date of Admission: 11/11/20 Date of Discharge: 11/13/20 Summary: Patient was readmitted to [facility] on 11/12/2020 status post on 11/07/2020 with history of GDMA1 and gestational hypertension. Patient presented with elevated blood pressures in the severe range. Preeclamptic labs were within normal limits. She received magnesium sulfate x24 hours. Was started on labetalol hypertensive protocol and eventually a maintenance dose of labetalol 200 mg 3 times daily. Patient was discharged home on hospital day #2 in stable condition. Will follow-up in the office. Meaningful Use Info Meaningful Use Diagnoses (Choose all that apply): None applicable Discharge Plan Admission Reason For Visit: R/O POST PRE ECLAMPSIA Attending Provider: Soniya Tenorio Discharge Orders/Prescriptions Prescriptions: No Action fluoxetine [Prozac] 40 mg Capsule 40 mg PO DAILY RF: 0 bupropion HCl [Wellbutrin XL] 150 mg Tablet Extended Release 24 Hr 150 mg PO DAILY RF: 0 oxycodone-acetaminophen [Percocet] 5-325 mg tablet 1 tab PO Q8H PRN (Reason: pain) 7 Days Qty: 10 RF: 0 ibuprofen 800 mg tablet 800 mg PO Q8H PRN (Reason: pain) Qty: 20 RF: 0
--- NOTE | 2020-11-13 08:07 | PCM.DC ---
Discharge Instructions Diet Discharge Diet: No restrictions Activity May resume sexual activity in: 6-8 weeks Lifting Restrictions: 25 Dressing / Incision Call your doctor if your incision/area has: Continuous Slow Oozing, Sudden Increased Bleeding, Increased Pain/ Swelling, Increased Redness, Foul Smelling Discharge and Swelling at the incision site Call your doctor if you observe: Fever of 101 or Higher, Inability to urinate, Using more than 1 pad per hour and Uncontrolled pain Additional Dressing/Incision Instructions:: remove dressing at 7 days post op Follow Up Care Please Follow Up With: Monica Eli DO When: as scheduled with Dr. Eli - 11/14/20 Test Results: Test results from this visit will be discussed in further detail at your follow-up appointment, if applicable. Discharge Plan Admission Reason For Visit: R/O POST PRE ECLAMPSIA Attending Provider: Soniya Tenorio Instructions Patient Instructions: Controlling High Blood Pressure, Taking Blood Pressure Medications, Taking Your Blood Pressure, Gestational Hypertension Discharge Orders/Prescriptions Prescriptions: No Action fluoxetine [Prozac] 40 mg Capsule 40 mg PO DAILY RF: 0 bupropion HCl [Wellbutrin XL] 150 mg Tablet Extended Release 24 Hr 150 mg PO DAILY RF: 0 oxycodone-acetaminophen [Percocet] 5-325 mg tablet 1 tab PO Q8H PRN (Reason: pain) 7 Days Qty: 10 RF: 0 ibuprofen 800 mg tablet 800 mg PO Q8H PRN (Reason: pain) Qty: 20 RF: 0 Disposition Patient Disposition: Home, Self Care
--- NOTE | 2020-11-13 08:09 | PCM.DC ---
Discharge Instructions Diet Discharge Diet: No restrictions Activity May resume sexual activity in: 6-8 weeks Dressing / Incision Call your doctor if your incision/area has: Continuous Slow Oozing, Sudden Increased Bleeding, Increased Pain/ Swelling, Increased Redness, Foul Smelling Discharge and Swelling at the incision site Call your doctor if you observe: Fever of 101 or Higher, Inability to urinate, Using more than 1 pad per hour and Uncontrolled pain Additional Dressing/Incision Instructions:: remove dressing at 7 days post op Follow Up Care Please Follow Up With: Monica Eli DO Test Results: Test results from this visit will be discussed in further detail at your follow-up appointment, if applicable. Discharge Plan Admission Reason For Visit: R/O POST PRE ECLAMPSIA Attending Provider: Soniya Tenorio Instructions Patient Instructions: Controlling High Blood Pressure, Taking Blood Pressure Medications, Taking Your Blood Pressure, Gestational Hypertension Discharge Orders/Prescriptions Prescriptions: New labetalol 200 mg Tablet 200 mg PO TID Qty: 90 RF: 1 Continued fluoxetine [Prozac] 40 mg Capsule 40 mg PO DAILY RF: 0 bupropion HCl [Wellbutrin XL] 150 mg Tablet Extended Release 24 Hr 150 mg PO DAILY RF: 0 oxycodone-acetaminophen [Percocet] 5-325 mg tablet 1 tab PO Q8H PRN (Reason: pain) 7 Days Qty: 10 RF: 0 ibuprofen 800 mg tablet 800 mg PO Q8H PRN (Reason: pain) Qty: 20 RF: 0 Disposition Patient Disposition: Home, Self Care
[2020-11-13] MEDS: NIFEdipine 30 MG Tablet PO (11:40)
[2020-11-13] MEDS: 0.9% Saline Lock 10 ML Syringe IV (11:45)
== END 2020-11-13 17:00 | disposition home or self-care (01) ==
LOC: WPOUT 21:12 → WP 21:13
PROVIDERS: Visit Provider Advanced Practice Midwife
DX: O14.95 Unspecified pre-eclampsia, complicating the puerperium (principal); F53.0 Postpartum depression; Z87.891 Personal history of nicotine dependence
CPT/HCPCS: 96365; 96366 ×23; 96375; 36415; 80053; 85027; 87426; 94760; 99218; A4216; G0378